=== PATIENT | female | born 1980 | race Caucasian/White ===

== ENCOUNTER 2020-12-21 15:18 | Emergency (ER) | payer OTHER ==
[2020-12-21 15:25] VITALS: BP 129/75
--- NOTE | 2020-12-21 15:34 | ED Physician Documentation ---
PD HPI LOWER EXT INJURY - Stated complaint Stated Complaint: LT KNEE INJ - Chief complaint Chief Complaint: Ext Problem - History obtained from History obtained from: Patient - History of Present Illness PD HPI LOW EXT INJURY LOCATION: Left, Knee - Additional information Additional information: Her dog ran into the lateral part of the left knee today while she was hiking and she felt some pops. Pain is minimal and she is able to walk and bear weight but it feels somewhat unstable. Review of Systems Constitutional: reports: Reviewed and negative Eyes: reports: Reviewed and negative Ears: reports: Reviewed and negative Throat: reports: Reviewed and negative Cardiac: reports: Reviewed and negative Respiratory: reports: Reviewed and negative PD PAST MEDICAL HISTORY - Past Medical History Past Medical History: No - Past Surgical History Past Surgical History: No - Present Medications Home Medications: Ambulatory Orders Medication Instructions Recorded Confirmed No Known Home Medications 12/21/20 12/21/20 - Allergies Allergies/Adverse Reactions: Allergies Allergy/AdvReac Type Severity Reaction Status Date / Time No Known Drug Allergies Allergy Verified 12/21/20 15:25 - Social History Does the pt smoke?: No Smoking Status: Never smoker Does the pt drink ETOH?: Yes Does the pt have substance abuse?: No - Immunizations Immunizations are current?: Yes PD ED PE NORMAL - Vitals Vital signs reviewed: Yes - General General: Alert and oriented X 3, No acute distress - Extremities Extremities: Other (No effusion of the left knee, no bony tenderness. She is painful with LCL testing but the remainder of her ligaments are without pain with testing and negative grind testing.) - Neuro Neuro: Alert and oriented X 3, Normal speech Results - Vitals Vitals: Vital Signs - 24 hr 12/21/20 15:22 Temperature 36.2 C L Heart Rate 70 Respiratory 18 Rate Blood Pressure 129/75 O2 Saturation 98 Oxygen O2 Source Room air PD MEDICAL DECISION MAKING - ED course ED course: 40-year-old woman with clinically probably a sprain of the LCL. 4 view x-ray of the left knee interpreted contemporaneously by me is normal. Placed in knee immobilizer for comfort and discussed follow-up. Departure - Departure Disposition: 01 Home, Self Care Clinical Impression: Knee LCL sprain Qualifiers: Encounter type: initial encounter Laterality: left Qualified Code(s): S83.422A - Sprain of lateral collateral ligament of left knee, initial encounter Condition: Good Record reviewed to determine appropriate education?: Yes Instructions: ED Sprain Knee Follow-Up: [facility] [Provider Group] Comments: You can wear the splint when up and around, if completely better within the week, I do not think any specific follow-up is necessary, if not better in that timeframe, call your primary care physician or the orthopedics office for a follow-up appointment. Return for new or worsening symptoms. You can take ibuprofen as needed for pain.
--- NOTE | 2020-12-21 15:58 | XRAY Report ---
PROCEDURE: Knee 4 View LT INDICATIONS: knee inj TECHNIQUE: 4 views of the left knee(s) were acquired. COMPARISON: None. FINDINGS: Bones: No fractures or dislocations. No suspicious bony lesions. Soft tissues: No joint effusion. No suspicious soft tissue calcifications. IMPRESSION: No acute left knee fracture or dislocation. No joint effusion. Reviewed by: Lon Barron MD on 12/21/2020 3:56 PM [facility] Approved by: Lon Barron MD on 12/21/2020 3:56 PM [facility] Station ID: [id number]
== END 2020-12-21 16:24 | disposition home or self-care (01) ==
LOC: ED 15:18
DX: S83.422A Sprain of lateral collateral ligament of left knee, initial encounter (principal); W54.1XXA Struck by dog, initial encounter; Y93.01 Activity, walking, marching and hiking
CPT/HCPCS: 99283